=== PATIENT | female | born 1940 | race Caucasian/White ===

== ENCOUNTER → 2016-03-22 | Outpatient (CLI) | payer MEDICARE, BC ==
[~2016-03-22] MED LIST: ABILIFY2 MG PO; ALMACONE 360 M360 ML PO; AMANTADINE100 MG PO; ARICEPT10 MG PO; ARTIFICIAL TEAR OU; ASPI325T6 PO; ASPIRIN 81M81 MG/TA2 PO; ASPIRIN E.C. 8181 MG PO; ATENOLOL25 MG PO; BIOTENE DRY M1000 ML MM; BIOTENE DRY M1000 ML PO; CALCIUM 600600 M2 PO; CEFTIN 250250 MG/TAB PO; CEFTIN500 MG PO; CIPRO 250MG TA250 MG PO; CIPRO 500MG TA500 MG PO; DULCOLAX S10 MG/SUPP RC; GENTAMICIN EYE D5 ML OU; GILENYA0.5 MG PO; GLUCOPHAGE XR500 M1 PO; IMODIUM 2MG CAPS2 MG PO; LANTUS100 U/ML SC; LANTUS100 U/ML SQ; LIORESAL 1010 MG/TAB PO; LIORESAL10 MG PO; LOMOTIL 0.025 M1 TAB PO; MACROBID 1100 MG/CAP PO; MACRODANTIN50 MG/CA1 PO; METFORMIN1000 MG PO; MILK OF MA400 MG/52 PO; MIRALAX PA17 GM/Dose PO; MIRTAZAPINE7.5 MG PO; MULTIPLE VITAMI1 CAP PO; MULTIVITAMIN FO1 CAP PO; NEURONTIN100 MG/CAP PO; NORCO 325 MG-7.1 TAB PO; NOVOLOG 100U100 U/M1; NOVOLOG 100U100 U/M1 SQ; NYSTATIN CREAM15 GM TP; PREMARIN 0.60.625 M1 PO; PRILOSEC 20MG20 MG PO; PRINIVIL2.5 MG PO; PRO STAT; PROBIOTIC FORMU1 CAP PO; PROBIOTIC-MAJOR PO; PROBIOTICA100 Milli1 PO; PROTEIN SUPPLEMENT PO; REMERON 15M15 MG/TA1 PO; ROBITUSSIN DM 105 ML PO; SYMMETREL100 M1 PO; SYMMETREL100 MG PO; TENORMIN 2525 MG/TAB PO; TYLENOL 500MG500 MG PO; VESICARE 5MG5 MG PO; VITAMIN C500 MG PO; VTAMINC250TA PO; ZESTRIL 10MG10 MG PO; ZOCOR 80MG80 MG PO; ZOCOR80 MG PO
== END ==
LOC: ZCOL.LAB 16:40
DX: Z01.89 Encounter for other specified special examinations (principal)

== ENCOUNTER → 2016-03-22 | Outpatient (REF) | LOC: ZLAB.WCH 10:00 | DX: N39.0 Urinary tract infection, site not specified (principal); Z02.89 Encounter for other administrative examinations ==

== ENCOUNTER → 2016-11-19 | Outpatient (CLI) | payer MEDICARE, BC | LOC: COL.RAD 13:18 | DX: G35 Multiple sclerosis (principal) ==

== ENCOUNTER → 2016-12-17 | Outpatient (REF) ==
[~2016-12-17] MED LIST changes: +ARTIFICIAL TEAR15 M7 OP; +HIPREX PO; +LANTUS SOLOS100 U/ML SQ; +PEPCID 20MG TAB20 MG PO; +PROBIOTIC ACID1 EAC3 PO; +TOPROL XL 25MG25 MG PO; +VITAMIND3 5000
[2016-12-17 07:15] LABS: BASO # 0.1 (0.0-0.2); BASO % 0.9 % (0.0-2.0); EOS # 0.2 (0.0-0.7); GRAN # 3.7 (1.4-6.5); GRAN % 50.4 % (42.2-75.2); LYMPH # 2.7 (1.2-3.4); LYMPH % 36.9 % (20.0-51.0); MEAN CELL VOLUME 86 fl (80.0-100.0); MEAN CORPUSCULAR HGB CONC 31 g/dl (33.0-37.0); MEAN PLATELET VOLUME 10.3 fl (7.4-10.4); MONO # 0.6 (0.1-0.6); MONO % 8.5 % (1.7-9.3); PLATELET COUNT 237 K/mm3 (130-400); RED BLOOD COUNT 4.19 M/mm3 (4.10-5.30); WHITE BLOOD COUNT 7.4 K/mm3 (4.8-10.8)
[2016-12-17 07:16] LABS: HEMATOCRIT 35.9 % (37.0-47.0); HEMOGLOBIN 11.2 g/dl (12.5-16.0); MEAN CORPUSCULAR HEMOGLOBIN 27 pg (27.0-31.0)
[2016-12-17 07:28] LABS: ADJUSTED CALCIUM 10.1 mg/dL (8.4-10.2); BILIRUBIN,TOTAL 0.6 mg/dL (0.0-1.0); CALCIUM 9.3 mg/dL (8.4-10.2); CREATININE, serum 0.77 mg/dL (0.52-1.25); POTASSIUM 4.1 mmol/L (3.4-5.0); TOTAL PROTEIN 6.4 gm/dL (6.4-8.2)
== END ==
LOC: ZCOL.LAB 07:10
PROVIDERS: Family Medicine
DX: Z01.89 Encounter for other specified special examinations (principal)

== ENCOUNTER → 2016-12-21 | Outpatient (REF) ==
[2016-12-21 12:55] LABS: COLLECTION METHOD CATHETER
[2016-12-21 13:26] LABS: MUCOUS Present /lpf; PH 5 (5-8); URINE APPEARANCE Turbid; URINE BACTERIA Rare /hpf; URINE BILIRUBIN Negative (NEGATIVE); URINE BLOOD Negative (NEGATIVE); URINE CALCIUM OXALATE CRYSTAL Present /hpf; URINE COLOR Amber; URINE GLUCOSE 1+ (NEGATIVE); URINE KETONE Trace (NEGATIVE); URINE LEUKOCYTE ESTERASE 3+ (NEGATIVE); URINE PROTEIN(semi-quant) 2+ (NEGATIVE); URINE RBC >50 /hpf; URINE UROBILINOGEN Negative (NEGATIVE); URINE WBC >50 /hpf
== END ==
LOC: ZCOL.LAB 12:53
PROVIDERS: Family Medicine
DX: Z01.89 Encounter for other specified special examinations (principal)

== ENCOUNTER → 2016-12-22 | Outpatient (REF) | LOC: ZCOL.LAB 23:23 | DX: Z01.89 Encounter for other specified special examinations (principal) ==

== ENCOUNTER → 2016-12-22 | Outpatient (REF) | LOC: ZCOL.LAB 04:16 | DX: Z01.89 Encounter for other specified special examinations (principal) ==

== ENCOUNTER → 2017-01-06 | Outpatient (REF) ==
[2017-01-06 06:48] LABS: BASO % 0.5 % (0.0-2.0); EOS # 0.1 (0.0-0.7); EOS % 1.7 % (0-4.0); GRAN # 4.8 (1.4-6.5); GRAN % 58.2 % (42.2-75.2); LYMPH # 2.7 (1.2-3.4); LYMPH % 32.2 % (20.0-51.0); MEAN CELL VOLUME 85 fl (80.0-100.0); MEAN CORPUSCULAR HGB CONC 32 g/dl (33.0-37.0); MEAN PLATELET VOLUME 10.4 fl (7.4-10.4); MONO # 0.6 (0.1-0.6); MONO % 7.2 % (1.7-9.3); PLATELET COUNT 201 K/mm3 (130-400); RED BLOOD COUNT 4.19 M/mm3 (4.10-5.30); WHITE BLOOD COUNT 8.2 K/mm3 (4.8-10.8)
[2017-01-06 06:50] LABS: HEMATOCRIT 35.5 % (37.0-47.0); HEMOGLOBIN 11.3 g/dl (12.5-16.0); MEAN CORPUSCULAR HEMOGLOBIN 27 pg (27.0-31.0)
[2017-01-06 07:00] LABS: ADJUSTED CALCIUM 10.1 mg/dL (8.4-10.2); ALBUMIN 3.2 gm/dL (3.5-5.0); BILIRUBIN,TOTAL 0.4 mg/dL (0.0-1.0); CALCIUM 9.5 mg/dL (8.4-10.2); CREATININE, serum 0.73 mg/dL (0.52-1.25); TOTAL PROTEIN 6.1 gm/dL (6.4-8.2)
== END ==
LOC: ZCOL.LAB 06:41
PROVIDERS: Family Medicine
DX: I10 Essential (primary) hypertension (principal)

== ENCOUNTER → 2017-01-08 | Outpatient (REF) | LOC: ZCOL.LAB 06:26 | DX: Z01.89 Encounter for other specified special examinations (principal) ==